=== PATIENT | male | born 1960 | race Caucasian/White ===

== ENCOUNTER 2017-01-07 07:40 | Inpatient (IN) | payer OTHER ==
[~2017-01-07] VITALS: Ht 177.8 cm; Wt 70.4 kg
[2017-01-07 09:24] LABS: HEMATOCRIT 29.9 % (39.2-51.8); HEMOGLOBIN 9.9 g/dL (13.7-18.0); WHITE BLOOD COUNT 16.5 x10^3/uL (3.4-10)
[2017-01-07] MEDS ORDERED: PHENAZOPYRIDINE 200 MG TABLET PO ONE (09:30)
[2017-01-07 09:32] LABS: BLOOD UREA NITROGEN 86 mg/dL (7-18)
[2017-01-07] MEDS ORDERED: PHENAZOPYRIDINE 200 MG TABLET ONE (09:58)
[2017-01-07] MEDS ORDERED: MORPHINE SULFATE 4 MG/ML, 1ML ONE ×2 (10:29→11:14)
[2017-01-07] MEDS ORDERED: ONDANSETRON 2MG/ML, 2ML ONE (10:29)
[2017-01-07] MEDS ORDERED: SODIUM CHLORIDE FLUSH 10ML SYR IVF ONE (10:30)
[2017-01-07] MEDS ORDERED: ONDANSETRON 2MG/ML, 2ML IVPush ONE (10:30)
[2017-01-07] MEDS ORDERED: OPIUM/BELLADONNA SUPP.RECT 16.2-60 MG PR ONE (10:30)
[2017-01-07] MEDS ORDERED: SODIUM CHLORIDE 0.9% 1,000ML IVBOLUS ONE (10:30)
[2017-01-07] MEDS: MORPHINE SULFATE 4 MG/ML, 1ML IVPush PRN ×2 (10:46→11:24)
[2017-01-07] MEDS ORDERED: ATOR-2 PO (10:52)
[2017-01-07] MEDS ORDERED: LISI-167 PO (10:52)
[2017-01-07] MEDS ORDERED: CEFTRIAXONE PMX 1GM/50ML 50 ML ONE (10:54)
[2017-01-07] MEDS ORDERED: CEFTRIAXONE PMX 1GM/50ML 50 ML IV ONE (11:30)
[2017-01-07] MEDS ORDERED: CEFTRIAXONE PMX 1GM/50ML 50 ML IV SCH (12:30)
[2017-01-07] MEDS ORDERED: ONDANSETRON ODT 4 MG PO PRN (12:30)
[2017-01-07] MEDS ORDERED: ONDANSETRON 2MG/ML, 2ML IVPush PRN (12:30)
[2017-01-07 13:36] VITALS: BP 179/99
[2017-01-07] MEDS ORDERED: hydrALAzine 20 MG/ML, 1ML IV PRN (15:00)
[2017-01-07] MEDS: morphine SULFATE 10 MG/ML, 1ML IVPush PRN ×2 (16:02→19:44)
[2017-01-07 17:19] LABS: HEMOGLOBIN 10.2 g/dL (13.7-18.0)
[2017-01-07] MEDS: SODIUM CHLORIDE 0.9% 1,000 ML IV SCH ×2 (17:33→20:20)
[2017-01-07 19:26] VITALS: BP 123/84
[2017-01-07] MEDS: ATORVASTATIN 80 MG TABLET PO SCH (21:17)
[2017-01-07] MEDS: OPIUM/BELLADONNA SUPP.RECT 16.2-30 MG PR PRN (21:18)
[2017-01-07 22:36] LABS: HEMATOCRIT 30.9 % (39.2-51.8); HEMOGLOBIN 10.1 g/dL (13.7-18.0)
[2017-01-08] MEDS: morphine SULFATE 10 MG/ML, 1ML IVPush PRN ×4 (00:43→17:44)
[2017-01-08 01:03] VITALS: BP 145/79
[2017-01-08] MEDS: SODIUM CHLORIDE 0.9% 1,000 ML IV SCH ×3 (03:56→23:23)
[2017-01-08 05:53] LABS: HEMATOCRIT 31.7 % (39.2-51.8); HEMOGLOBIN 10.3 g/dL (13.7-18.0); WHITE BLOOD COUNT 12.1 x10^3/uL (3.4-10)
[2017-01-08 06:13] LABS: ASPARTATE AMINO TRANSFERASE 7 U/L (15-37); BLOOD UREA NITROGEN 84 mg/dL (7-18); FERRITIN 182.4 ng/mL (26-388); TOTAL IRON BINDING CAPACITY 240 mcg/dL (250-450)
[2017-01-08 08:00] VITALS: BP 118/75
[2017-01-08] MEDS: CEFTRIAXONE PMX 1GM/50ML 50 ML IV SCH (09:44)
[2017-01-08] MEDS: OPIUM/BELLADONNA SUPP.RECT 16.2-30 MG PR PRN (09:44)
[2017-01-08 14:00] VITALS: BP 123/85
[2017-01-08] MEDS ORDERED: ERGOCALCIFEROL 50,000 UNIT CAPSULE PO SCH (14:00)
[2017-01-08] MEDS: IRON SUCROSE COMPLEX 100MG/5ML IV SCH (14:52)
[2017-01-08] MEDS ORDERED: MIDAZOLAM 1 MG/ML, 2ML ONE (18:54)
[2017-01-08] MEDS ORDERED: FENTANYL PF 100 MCG/2ML ONE ×3 (18:54→21:42)
[2017-01-08] MEDS ORDERED: DEXAMETHASONE 4 MG/ML, 1ML ONE (20:22)
[2017-01-08] MEDS ORDERED: PROPOFOL 10 MG/ML, 20ML ONE (20:22)
[2017-01-08] MEDS ORDERED: ONDANSETRON 2MG/ML, 2ML ONE (20:22)
[2017-01-08] MEDS ORDERED: FLUORESCEIN SODIUM 500 MG/5 ML ONE (20:45)
[2017-01-08] MEDS ORDERED: LABETALOL 5MG/ML, 20ML IV PRN (21:00)
[2017-01-08] MEDS ORDERED: hydrALAzine 20 MG/ML, 1ML IV PRN (21:00)
[2017-01-08] MEDS ORDERED: METOPROLOL 1 MG/ML, 5ML IV PRN (21:00)
[2017-01-08] MEDS ORDERED: ACETAMINOPHEN 325 MG TABLET PO PRN (21:00)
[2017-01-08] MEDS ORDERED: HYDROmorphone 1 MG/ML, 1ML IV PRN (21:00)
[2017-01-08] MEDS ORDERED: OXYcodone 5 MG/5 ML ORAL.SOL UDC PO PRN (21:00)
[2017-01-08] MEDS ORDERED: ALBUTEROL SULFATE 2.5 MG/3 ML NPPB PRN (21:00)
[2017-01-08] MEDS ORDERED: FENTANYL PF 100 MCG/2ML IV PRN (21:00)
[2017-01-08] MEDS ORDERED: ONDANSETRON 2MG/ML, 2ML IVPush PRN (21:00)
[2017-01-08] MEDS ORDERED: PROMETHAZINE 25 MG/ML, 1ML IV PRN (21:00)
[2017-01-08] MEDS ORDERED: HYDROcodone/APAP 7.5-325MG/15ML UDC PO PRN (21:00)
[2017-01-08] MEDS ORDERED: EPHEDRINE 50 MG/ML, 1ML IVPush PRN (21:00)
[2017-01-08] MEDS ORDERED: OXYcodone 5 MG/5 ML ORAL.SOL UDC ONE (21:42)
[2017-01-08] MEDS: ATORVASTATIN 80 MG TABLET PO SCH (23:42)
[2017-01-09 00:18] VITALS: BP 155/89
[2017-01-09 03:07] VITALS: BP 129/79
[2017-01-09] MEDS: SODIUM CHLORIDE 0.9% 1,000 ML IV SCH ×3 (04:17→18:10)
[2017-01-09] MEDS: morphine SULFATE 10 MG/ML, 1ML IVPush PRN ×5 (05:50→21:50)
[2017-01-09 06:27] LABS: HEMATOCRIT 27.5 % (39.2-51.8); HEMOGLOBIN 8.9 g/dL (13.7-18.0); WHITE BLOOD COUNT 10.5 x10^3/uL (3.4-10)
[2017-01-09 06:35] LABS: BLOOD UREA NITROGEN 67 mg/dL (7-18)
[2017-01-09 06:37] VITALS: BP 117/68
[2017-01-09 06:39] LABS: ASPARTATE AMINO TRANSFERASE 13 U/L (15-37)
[2017-01-09] MEDS: ERGOCALCIFEROL 50,000 UNIT CAPSULE PO SCH (08:15)
[2017-01-09] MEDS: CEFTRIAXONE PMX 1GM/50ML 50 ML IV SCH (11:18)
[2017-01-09] MEDS ORDERED: LIDOCAINE 1%, 20ML ONE (12:33)
[2017-01-09] MEDS ORDERED: FENTANYL PF 100 MCG/2ML ONE (12:37)
[2017-01-09] MEDS ORDERED: MIDAZOLAM 1 MG/ML, 5ML ONE (12:37)
[2017-01-09] MEDS ORDERED: NALOXONE 1 MG/ML, 2ML ONE (12:37)
[2017-01-09] MEDS ORDERED: FLUMAZENIL 0.1 MG/1 ML, 5ML ONE (12:37)
[2017-01-09 14:00] VITALS: BP 225/134
[2017-01-09 14:16] VITALS: BP 156/76
[2017-01-09] MEDS: IRON SUCROSE COMPLEX 100MG/5ML IV SCH (15:20)
[2017-01-09 19:48] VITALS: BP 164/80
[2017-01-09] MEDS: ATORVASTATIN 80 MG TABLET PO SCH (20:09)
[2017-01-09] MEDS: OPIUM/BELLADONNA SUPP.RECT 16.2-30 MG PR PRN (20:35)
[2017-01-10] VITALS: BP 159/83
[2017-01-10 01:00] VITALS: BP 145/77
[2017-01-10] MEDS: morphine SULFATE 10 MG/ML, 1ML IVPush PRN ×4 (01:06→11:03)
[2017-01-10] MEDS: SODIUM CHLORIDE 0.9% 1,000 ML IV SCH ×2 (02:09→09:27)
[2017-01-10 04:23] VITALS: BP_SYST 144; BP_SYST 145; BP_DIAS 77; BP_DIAS 80
[2017-01-10 05:22] LABS: HEMOGLOBIN 8.8 g/dL (13.7-18.0); WHITE BLOOD COUNT 13.1 x10^3/uL (3.4-10)
[2017-01-10 05:35] LABS: ASPARTATE AMINO TRANSFERASE 16 U/L (15-37); BLOOD UREA NITROGEN 53 mg/dL (7-18)
[2017-01-10 07:30] VITALS: BP 151/78
[2017-01-10] MEDS: OPIUM/BELLADONNA SUPP.RECT 16.2-30 MG PR PRN (09:40)
[2017-01-10] MEDS: CEFTRIAXONE PMX 1GM/50ML 50 ML IV SCH (10:05)
[2017-01-10 14:10] VITALS: BP 180/96
[2017-01-10] MEDS: OXYcodone IR 5MG TABLET PO PRN ×3 (14:32→22:55)
[2017-01-10] MEDS: IRON SUCROSE COMPLEX 100MG/5ML IV SCH (14:33)
[2017-01-10] MEDS: LISINOPRIL 10 MG TABLET PO SCH (14:34)
[2017-01-10 21:09] VITALS: BP 152/80
[2017-01-10] MEDS: ATORVASTATIN 80 MG TABLET PO SCH (21:26)
[2017-01-11 01:56] VITALS: BP 174/90
[2017-01-11] MEDS: OXYcodone IR 5MG TABLET PO PRN ×5 (03:49→21:38)
[2017-01-11 05:01] LABS: HEMATOCRIT 27.1 % (39.2-51.8); HEMOGLOBIN 8.7 g/dL (13.7-18.0); WHITE BLOOD COUNT 11.6 x10^3/uL (3.4-10)
[2017-01-11 05:37] LABS: ASPARTATE AMINO TRANSFERASE 12 U/L (15-37); BLOOD UREA NITROGEN 42 mg/dL (7-18)
[2017-01-11 07:10] VITALS: BP 145/78
[2017-01-11] MEDS: LISINOPRIL 10 MG TABLET PO SCH (08:22)
[2017-01-11] MEDS: OPIUM/BELLADONNA SUPP.RECT 16.2-30 MG PR PRN ×2 (09:53→19:41)
[2017-01-11] MEDS: CEFTRIAXONE PMX 1GM/50ML 50 ML IV SCH (10:07)
[2017-01-11] MEDS ORDERED: SODIUM CHLORIDE 0.9% 1,000 ML IV SCH (12:17)
[2017-01-11] MEDS ORDERED: SODIUM CHLORIDE 0.9%, IRRG.SOLN 1,000 ML IRRIG SCH (13:00)
[2017-01-11] MEDS ORDERED: AMINOCAPROIC ACID IRRIG ONE ×2 (13:30→22:30)
[2017-01-11] MEDS ORDERED: SODIUM CHLORIDE 0.9% IRRIG ONE ×2 (13:30→22:30)
[2017-01-11 13:55] VITALS: BP 135/79
[2017-01-11] MEDS: IRON SUCROSE COMPLEX 100MG/5ML IV SCH (14:27)
[2017-01-11] MEDS: POLYETHYLENE GLYCOL 17 GM PACKET PO PRN (14:27)
[2017-01-11 20:08] VITALS: BP 124/76
[2017-01-11] MEDS: ATORVASTATIN 80 MG TABLET PO SCH (21:38)
[2017-01-11] MEDS: DOCUSATE 100 MG CAPSULE PO SCH (21:39)
[2017-01-11] MEDS ORDERED: SODIUM CHLORIDE 0.9%, IRRG.SOLN 1,000 ML IRRIG ONE (22:00)
[2017-01-12 02:30] VITALS: BP 131/84
[2017-01-12 06:11] LABS: HEMATOCRIT 25.6 % (39.2-51.8); HEMOGLOBIN 8.4 g/dL (13.7-18.0); WHITE BLOOD COUNT 11.5 x10^3/uL (3.4-10)
[2017-01-12 06:19] LABS: BLOOD UREA NITROGEN 44 mg/dL (7-18)
[2017-01-12 07:24] VITALS: BP 123/74
[2017-01-12] MEDS ORDERED: SODIUM CHLORIDE 0.9%, IRRG.SOLN 1,000 ML IRRIG SCH (08:30)
[2017-01-12] MEDS ORDERED: AMINOCAPROIC ACID IRRIG ONE (09:00)
[2017-01-12] MEDS ORDERED: SODIUM CHLORIDE 0.9% IRRIG ONE (09:00)
[2017-01-12] MEDS: DOCUSATE 100 MG CAPSULE PO SCH ×2 (09:07→19:45)
[2017-01-12] MEDS: LISINOPRIL 10 MG TABLET PO SCH (09:07)
[2017-01-12] MEDS: OXYcodone IR 5MG TABLET PO PRN ×3 (09:07→19:45)
[2017-01-12] MEDS: IRON SUCROSE COMPLEX 100MG/5ML IV SCH (14:18)
[2017-01-12 14:32] VITALS: BP 104/62
[2017-01-12 19:45] VITALS: BP 128/81
[2017-01-12] MEDS: ATORVASTATIN 80 MG TABLET PO SCH (19:45)
[2017-01-13] MEDS: OXYcodone IR 5MG TABLET PO PRN ×5 (02:43→21:35)
[2017-01-13 02:49] VITALS: BP 144/79
[2017-01-13 05:55] LABS: BLOOD UREA NITROGEN 47 mg/dL (7-18)
[2017-01-13 06:09] LABS: HEMATOCRIT 26.6 % (39.2-51.8); HEMOGLOBIN 8.6 g/dL (13.7-18.0)
[2017-01-13 07:32] VITALS: BP 110/62
[2017-01-13 08:06] VITALS: BP 110/70
[2017-01-13] MEDS: LISINOPRIL 10 MG TABLET PO SCH (08:10)
[2017-01-13] MEDS: DOCUSATE 100 MG CAPSULE PO SCH ×2 (08:10→21:35)
[2017-01-13] MEDS: POLYETHYLENE GLYCOL 17 GM PACKET PO PRN (08:11)
[2017-01-13 13:42] VITALS: BP 118/77
[2017-01-13] MEDS ORDERED: SODIUM CHLORIDE 0.9%, IRRG.SOLN 1,000 ML IRRIG ONE ×3 (15:30→21:30)
[2017-01-13] MEDS ORDERED: AMINOCAPROIC ACID IRRIG ONE ×2 (16:00→22:00)
[2017-01-13] MEDS ORDERED: SODIUM CHLORIDE 0.9% IRRIG ONE ×2 (16:00→22:00)
[2017-01-13 19:01] VITALS: BP 115/77
[2017-01-13] MEDS: ATORVASTATIN 80 MG TABLET PO SCH (21:35)
[2017-01-13] MEDS: OPIUM/BELLADONNA SUPP.RECT 16.2-30 MG PR PRN (23:00)
[2017-01-14 01:07] VITALS: BP 111/71
[2017-01-14] MEDS ORDERED: SODIUM CHLORIDE 0.9%, IRRG.SOLN 1,000 ML IRRIG ONE ×2 (02:00→02:30)
[2017-01-14] MEDS ORDERED: PHARMACY INSTRUCTION MC PRN (02:30)
[2017-01-14] MEDS ORDERED: AMINOCAPROIC ACID IRRIG SCH (02:30)
[2017-01-14] MEDS ORDERED: SODIUM CHLORIDE 0.9% IRRIG SCH (02:30)
[2017-01-14] MEDS: AMINOCAPROIC ACID IRRIG SCH (02:59)
[2017-01-14] MEDS: SODIUM CHLORIDE 0.9% IRRIG SCH (02:59)
[2017-01-14 05:08] LABS: HEMATOCRIT 28.8 % (39.2-51.8); HEMOGLOBIN 9.4 g/dL (13.7-18.0); WHITE BLOOD COUNT 14.2 x10^3/uL (3.4-10)
[2017-01-14 05:25] LABS: BLOOD UREA NITROGEN 56 mg/dL (7-18)
[2017-01-14 08:30] VITALS: BP 117/84
[2017-01-14] MEDS: DOCUSATE 100 MG CAPSULE PO SCH ×2 (08:36→20:31)
[2017-01-14] MEDS: LISINOPRIL 10 MG TABLET PO SCH (08:37)
[2017-01-14 14:55] VITALS: BP 112/70
[2017-01-14] MEDS ORDERED: BISACODYL 10 MG SUPP PR PRN (15:30)
[2017-01-14] MEDS: OXYcodone IR 5MG TABLET PO PRN ×2 (15:50→23:55)
[2017-01-14] MEDS ORDERED: SODIUM POLYSTYRENE SULFONATE ORAL SUSP PO ONE (17:30)
[2017-01-14] MEDS ORDERED: INSULIN REGULAR 100 UNITS/ML, 3ML VIAL IVPush ONE (17:30)
[2017-01-14] MEDS ORDERED: CALCIUM GLUCONATE 4.6 MEQ in SODIUM CHLORIDE 0.9% 50 ML IV ONE (17:30)
[2017-01-14] MEDS ORDERED: CALCIUM GLUCONATE 4.6 MEQ/10 ML IVPush ONE (17:30)
[2017-01-14] MEDS ORDERED: DEXTROSE 50%, 50ML SYRINGE IVPush ONE (17:30)
[2017-01-14 20:07] VITALS: BP 114/65
[2017-01-14] MEDS: ATORVASTATIN 80 MG TABLET PO SCH (20:31)
[2017-01-14 20:32] VITALS: BP 109/64
[2017-01-15 03:58] VITALS: BP 109/67
[2017-01-15 04:33] LABS: HEMATOCRIT 26.9 % (39.2-51.8); HEMOGLOBIN 8.7 g/dL (13.7-18.0); WHITE BLOOD COUNT 12.7 x10^3/uL (3.4-10)
[2017-01-15 04:43] LABS: BLOOD UREA NITROGEN 58 mg/dL (7-18)
[2017-01-15] MEDS: AMINOCAPROIC ACID IRRIG SCH ×3 (06:52→21:27)
[2017-01-15] MEDS: SODIUM CHLORIDE 0.9% IRRIG SCH ×3 (06:52→21:27)
[2017-01-15 08:39] VITALS: BP 111/69
[2017-01-15] MEDS: DOCUSATE 100 MG CAPSULE PO SCH ×2 (08:57→21:25)
[2017-01-15] MEDS: LISINOPRIL 10 MG TABLET PO SCH (08:57)
[2017-01-15 13:15] VITALS: BP 104/60
[2017-01-15] MEDS: OXYcodone IR 5MG TABLET PO PRN ×2 (13:37→19:20)
[2017-01-15] MEDS: OXYBUTYNIN CHLORIDE 5 MG TABLET PO SCH ×2 (16:38→21:26)
[2017-01-15 20:00] VITALS: BP 111/62
[2017-01-15] MEDS: ATORVASTATIN 80 MG TABLET PO SCH (21:25)
[2017-01-16 06:58] VITALS: BP 107/68
[2017-01-16 08:18] LABS: BLOOD UREA NITROGEN 67 mg/dL (7-18)
[2017-01-16 08:23] LABS: HEMATOCRIT 26.1 % (39.2-51.8); HEMOGLOBIN 8.6 g/dL (13.7-18.0); WHITE BLOOD COUNT 11.7 x10^3/uL (3.4-10)
[2017-01-16] MEDS: OXYBUTYNIN CHLORIDE 5 MG TABLET PO SCH (09:54)
[2017-01-16] MEDS: DOCUSATE 100 MG CAPSULE PO SCH (09:54)
[2017-01-16] MEDS: LISINOPRIL 10 MG TABLET PO SCH (09:55)
[2017-01-16] MEDS: ERGOCALCIFEROL 50,000 UNIT CAPSULE PO SCH (09:57)
[2017-01-16 14:55] VITALS: BP 134/77
[2017-01-16] MEDS ORDERED: OXYC5TAB3 PO (16:08)
[2017-01-16] MEDS ORDERED: ERGO500017 PO (16:08)
[2017-01-16] MEDS ORDERED: OXYB5TAB7 PO (16:08)
[2017-01-16] MEDS ORDERED: DOCU-131 PO (16:10)
[2017-01-16 17:00] VITALS: BP 125/65
[2017-01-16] MEDS ORDERED: OXYBUTYNIN CHLORIDE 5 MG TABLET PO SCH (21:00)
== END 2017-01-16 17:33 | disposition home or self-care (01) | DRG 853 ==
LOC: ED 09:13 → EDIP 11:54 → 3NE 13:21 → 4NOR 01-08 22:19
PROVIDERS: ADMIT Family Medicine; ATTEND Family Medicine
PROC: 0TBB8ZZ Excision of Bladder, Via Natural or Artificial Opening Endoscopic (ICD-10-PCS; principal; 2017-01-07)
PROC: 0T9130Z Drainage of Left Kidney with Drainage Device, Percutaneous Approach (ICD-10-PCS; 2017-01-09)
PROC: 0T9430Z Drainage of Left Kidney Pelvis with Drainage Device, Percutaneous Approach (ICD-10-PCS; 2017-01-09)
DX: A41.9 Sepsis, unspecified organism (principal); E43 Unspecified severe protein-calorie malnutrition; E87.2 Acidosis; N17.9 Acute kidney failure, unspecified; E87.1 Hypo-osmolality and hyponatremia; D62 Acute posthemorrhagic anemia; N13.30 Unspecified hydronephrosis; E44.0 Moderate protein-calorie malnutrition; D50.9 Iron deficiency anemia, unspecified; F12.90 Cannabis use, unspecified, uncomplicated; I12.9 Hypertensive chronic kidney disease with stage 1 through stage 4 chronic kidney disease, or unspecified chronic kidney disease; E83.51 Hypocalcemia; N30.91 Cystitis, unspecified with hematuria; Z68.22 Body mass index [BMI] 22.0-22.9, adult; D75.89 Other specified diseases of blood and blood-forming organs; E55.9 Vitamin D deficiency, unspecified; E78.5 Hyperlipidemia, unspecified; E87.5 Hyperkalemia; N13.5 Crossing vessel and stricture of ureter without hydronephrosis; N18.9 Chronic kidney disease, unspecified; Z80.0 Family history of malignant neoplasm of digestive organs; Z82.49 Family history of ischemic heart disease and other diseases of the circulatory system; Z87.440 Personal history of urinary (tract) infections
CPT/HCPCS: 36415; 50432; 51702; 74176; 76770; 76942; 80048; 80053; 80069; 81001; 82306; 82728; 82962; 83540; 83550; 83735; 83970; 84100; 84132; 84550; 85014; 85018; 85025; 85610; 86850; 86900; 87086; 88305; 96365; 96375; 96376; 99156; 99157; C1894; J0610; J0696; J1100; J1756; J1815; J2250; J2405; J2704; J3010; J3490; C1729; C1769; J0360; J2270; J2310; J7030

== ENCOUNTER 2017-03-13 09:42 | Emergency (ER) | payer OTHER ==
[~2017-03-13] VITALS: Ht 177.8 cm; Wt 73.0 kg
[~2017-03-13 09:42] MED LIST: ATOR-2 PO; DOCU-131 PO; ERGO500017 PO; LISI-167 PO; OXYB5TAB7 PO; OXYC5TAB3 PO
[2017-03-13] MEDS ORDERED: ONDANSETRON 2MG/ML, 2ML ONE (10:26)
[2017-03-13] MEDS ORDERED: morphine SULFATE 10 MG/ML, 1ML ONE ×2 (10:26→16:29)
[2017-03-13] MEDS ORDERED: SODIUM CHLORIDE FLUSH 10ML SYR IVF ONE (10:30)
[2017-03-13] MEDS ORDERED: SODIUM CHLORIDE 0.9% 1,000ML IVBOLUS ONE (10:30)
[2017-03-13] MEDS ORDERED: ONDANSETRON 2MG/ML, 2ML IVPush ONE (10:30)
[2017-03-13] MEDS: MORPHINE SULFATE 4 MG/ML, 1ML IVPush PRN ×2 (10:42→12:45)
[2017-03-13 10:48] LABS: HEMATOCRIT 33.7 % (39.2-51.8); HEMOGLOBIN 11.1 g/dL (13.7-18.0); WHITE BLOOD COUNT 14.7 x10^3/uL (3.4-10)
[2017-03-13 11:01] LABS: BLOOD UREA NITROGEN 81 mg/dL (7-18)
[2017-03-13] MEDS ORDERED: CEFTRIAXONE PMX 1GM/50ML 50 ML IV ONE (13:00)
[2017-03-13] MEDS ORDERED: CEFTRIAXONE PMX 1GM/50ML 50 ML ONE (13:49)
[2017-03-13] MEDS ORDERED: morphine SULFATE 10 MG/ML, 1ML IVPush ONE (14:00)
[2017-03-13 16:20] VITALS: BP 126/66
== END 2017-03-13 18:11 | disposition home or self-care (01) ==
LOC: ED 11:22
DX: R31.0 Gross hematuria (principal); I10 Essential (primary) hypertension
CPT/HCPCS: 36415; 51702; 80048; 81001; 82040; 85025; 87077; 87086; 87186; 96361; 96365; 96366; 96375; 96376; 99285; J0696; J2405; J7030

== ENCOUNTER → 2017-05-14 | Outpatient (CLI) | payer OTHER | END | disposition home or self-care (01) | LOC: CFH 11:29 | PROVIDERS: ATTEND Nurse Practitioner | DX: N18.5 Chronic kidney disease, stage 5 (principal); D64.9 Anemia, unspecified; E87.1 Hypo-osmolality and hyponatremia; E83.51 Hypocalcemia; Z96.0 Presence of urogenital implants | CPT/HCPCS: 76770 ==